=== PATIENT | female | born 1940 | race Caucasian/White ===

== ENCOUNTER 2018-07-31 00:10 | Emergency (ER) | payer MEDICARE, OTHER ==
[~2018-07-31] VITALS: Ht 149.9 cm; Wt 63.5 kg
[~2018-07-31 00:10] MED LIST: ALPR.25 PO; ASPI325 PO; CALCAVITDA PO; CALMAGZIN; CELE200 PO; CIPR500 PO; EFFIENT PO; ESOM20; ESTNOR; HYDACE5 PO; METO25; METO25ER PO; MULVITA; MULVITMIND PO; OMEP20ER PO; OMEPRAZOLE DR 20 MG; PYRI100 PO; ROFE25; SIMV40 PO; Simvastatin40 MG; [UNRECOGNIZED DRUG - REMARK]
[2018-07-31] MEDS ORDERED: Aspir 8181 MG PO (00:35)
[2018-07-31 00:51] LABS: BASOPHILS ABSOLUTE AUTO 0.03 K/mm3 (0.00-0.23); BASOPHILS PERCENT AUTO 0 % (0-2); EOSINOPHILS ABSOLUTE AUTO 0.01 K/mm3 (0.00-0.68); EOSINOPHILS PERCENT AUTO 0 % (0-6); Hematocrit 42.8 % (33.0-51.0); Hemoglobin 14.2 g/dL (11.5-16.0); IMMATURE GRAN ABSOLUTE AUTO 0.03 K/mm3 (0.00-0.10); IMMATURE GRAN PERCENT AUTO 0 % (0-1); LYMPHOCYTES ABSOLUTE AUTO 0.87 K/mm3 (0.84-5.20); LYMPHOCYTES PERCENT AUTO 7 % (21-46); MONOCYTES PERCENT AUTO 3 % (4-13); Mean Corpuscular HGB 28.9 pg (26.0-34.0); Mean Corpuscular HGB Conc 33.2 g/dL (31.5-36.5); Mean Corpuscular Volume 87 fL (80-100); Mean Platelet Volume 11.3 fL (9.1-12.4); NEUTROPHILS ABSOLUTE AUTO 12.14 K/mm3 (1.96-9.15); NEUTROPHILS PERCENT AUTO 90 % (41-73); Platelet Count 322 K/mm3 (150-400); RDW Coefficient Variation 14.3 % (11.7-14.2); RDW Standard Deviation 45.9 fL (35.1-46.3); Red Blood Cell Count 4.92 M/mm3 (3.80-5.20); White Blood Cell Count 13.48 K/mm3 (4.00-11.30)
[2018-07-31 01:13] LABS: Alanine Aminotransfer (ALT/SGP 19 U/L (12-78); Albumin, Blood 3.6 g/dL (3.4-5.0); Albumin/Globulin Ratio 0.8 (0.8-1.8); Alk Phos 73 U/L (50-136); Anion Gap 13 mmol/L (6-16); Aspartate Aminotrans (AST/SGOT 20 U/L (12-37); Bilirubin, Total 0.7 mg/dL (0.1-1.0); Blood Urea Nitrogen 21 mg/dL (8-24); Bun/Creatinine Ratio 26.6 (12.0-20.0); CO2, Blood 23 mmol/L (21-32); Calcium, Blood 9.3 mg/dL (8.5-10.1); Chloride, Blood 103 mmol/L (98-108); Creatinine, Blood 0.79 mg/dL (0.40-1.00); Globulin, Blood 4.3 g/dL (2.2-4.0); Glomerular Filtration Rate >60 (60-); Glucose, Blood 188 mg/dL (70-99); Potassium, Blood 3.9 mmol/L (3.5-5.5); Sodium, Blood 139 mmol/L (136-145); Total Protein, Blood 7.9 g/dL (6.4-8.2); Troponin I <0.015 ng/mL (0.000-0.040)
[2018-07-31 01:40] LABS: Source, Urine Clean Catch
[2018-07-31 01:41] LABS: Bilirubin, Urine Neg (Neg); Blood, Urine Neg (Neg); Glucose Qualitative, Urine 1+ (Neg); Ketones, Urine 2+ (Neg); Leukocyte Esterase, Urine 1+ (Neg); Nitrite, Urine Neg (Neg); Protein, Urine 2+ (Neg); Urobilinogen, Urine NORM (Normal)
[2018-07-31 01:46] LABS: Appearance, Urine Clear (Clear); Color, Urine Yellow (P-Yellow)
[2018-07-31 01:47] LABS: Bacteria Rare /hpf; Red Blood Cells, Urine Not Seen /hpf (0-2); Squamous Epithelial Cells Not Seen /hpf (Few)
== END 2018-07-31 04:58 | disposition home or self-care (01) ==
LOC: ER 00:10
PROVIDERS: Emergency Medicine
DX: K44.9 Diaphragmatic hernia without obstruction or gangrene (principal); K21.9 Gastro-esophageal reflux disease without esophagitis; Z91.048 Other nonmedicinal substance allergy status; Z88.6 Allergy status to analgesic agent; Z79.899 Other long term (current) drug therapy; I25.2 Old myocardial infarction
CPT/HCPCS: 80053; 81001; 83690; 84484; 85025; 87086; 93005; 93010; 96374; 99284-25; J2405

== ENCOUNTER 2018-09-03 11:46 | Day surgery (SDC) | payer MEDICARE, OTHER ==
[~2018-09-03] VITALS: Ht 149.9 cm; Wt 55.9 kg
[~2018-09-03 11:46] MED LIST changes: +Aspir 8181 MG PO
--- NOTE | 2018-09-03 13:28 | NUR ---
09/03/18 1328 Leilani Gallagher PT AWARE OF CHANGE IN ANESTHESIA PLAN PER DR. GRAHAM AND DR. MCKOY. PT CONTENT IN PREOP WITH CALL LIGHT WITHIN REACH.
== END 2018-09-03 15:20 | disposition home or self-care (01) ==
LOC: ORSCSDS 11:46
PROVIDERS: Surgery
PROC: 0DB48ZX Excision of Esophagogastric Junction, Via Natural or Artificial Opening Endoscopic, Diagnostic (ICD-10-PCS; principal; 2018-09-03 13:00)
DX: K44.9 Diaphragmatic hernia without obstruction or gangrene (principal); K21.9 Gastro-esophageal reflux disease without esophagitis; I25.2 Old myocardial infarction; I10 Essential (primary) hypertension; I25.10 Atherosclerotic heart disease of native coronary artery without angina pectoris; Z79.82 Long term (current) use of aspirin; Z79.899 Other long term (current) drug therapy
CPT/HCPCS: 88305; J1100; J2250; J2704; J2710; J7120

== ENCOUNTER 2018-10-08 06:04 | Inpatient (IN) | payer MEDICARE, OTHER ==
[~2018-10-08] VITALS: Ht 149.9 cm; Wt 55.5 kg
[~2018-10-08 06:04] MED LIST changes: +ATOR40TA PO; +CHOL10002 PO; +Coq-1030 MG PO; +Hair, Skin & N1 EACH PO; +Metoprolol Succ25 MG PO; -OMEPRAZOLE DR 20 MG; +OMEPRAZOLE PO; +SENN187 PO; -Simvastatin40 MG; +Simvastatin40 MG PO; +[UNRECOGNIZED DRUG - OTHER] PO
--- NOTE | 2018-10-08 06:41 | NUR ---
PT ADMITTED TO [facility]. AGREES WITH PLANNED SURGERY. PT STATES SHE IS VERY ANXIOUS AND APPEARS TO BE. LUNG SOUNDS CLEAR.
--- NOTE | 2018-10-08 06:43 | NUR ---
PT STATES SHE DRANK A 10 OZ ENSURE AT 0430 THAT WAS GIVEN TO HER BY DR. MCKOY, STATES IS WAS A VERY THINK DRINK.
--- NOTE | 2018-10-08 17:38 | NUR ---
SUMMARY PT ARRIVED TO UNIT FROM PACU THIS AFTERNOON. A&OX4. ANXIOUS. LAP INCISIONS X5 W/WOUND GLUE TO ABDOMEN CDI. NG TO L NARES TO LIS. SCANT BLOOD TINGED DRAINAGE. MEDICATED PT PER ORDERS FOR PAIN AND NAUSEA. PT HAS BEEN UP TO VOID. DAUGHTER AT BEDSIDE. CALL LIGHT IN REACH. BED ALARM ON.
--- NOTE | 2018-10-08 19:17 | NUR ---
REPORT GIVEN TO ONCOMING SHIFT.
--- NOTE | 2018-10-09 07:47 | NUR ---
SUMMARY PT ANXIOUS AND REQUIRES FREQUENT REASSURANCE AND REINSTRUCT ON POSTOP CARE. NG BEGINNING TO HAVE GREEN TINGE.PT RECEIVING MORPHINE FOR PAIN.
--- NOTE | 2018-10-09 15:22 | NUR ---
NG TUBE DR MCKOY BY TO CLAMP NG TUBE THIS AM. REASSESSED FOR NAUSEA, BLOATING. NO NEW ORDERS. PT NG TO REMAIN CLAMPED UNLESS C/O N/V, BLOATING.
--- NOTE | 2018-10-09 18:34 | NUR ---
SHIFT SUMMARY PT NG TUBE CLAMPED. DR MCKOY WANTS IT TO REMAIN CLAMPED THROUGHOUT NIGHT UNLESS C/O N/V OR BLOATING. IN CHAIR FOR MEALS AND 1 PERSON ASSIST TO BSC WITH FWW. PT EXPRESSED INCREASE PAIN WITH AMBULATION AND OOB. CONFUSED AT TIMES THROUGHOUT SHIFT BUT EASY TO REDIRECT. CALL LIGHT WITHIN REACH.
--- NOTE | 2018-10-10 06:36 | NUR ---
shift summary PT A&O T/O SHIFT; OCC SHORT-TERM FORGETFUL. POD#2 PARAESOPHAGEAL HERNIA REPAIR; LAP SITES CDI. ABD SOFT, FEW BT. NG TUBE RECONNECTED D/T PT DISCOMFORT AND SLIGHT INCREASE IN DISTENTION APPROX. MIDNIGHT 650 ML OUT. PAIN MANAGED PER EMAR. SCD'S TO BLE'S. RA; CONT. OXIMETRY IN PLACE. TELEMETRY IN PLACE; SR WITH PAC'S. UP WITH FWW AND SBA. CALL LIGHT IN REACH; PT UP IN RECLINER AT THIS TIME.
--- NOTE | 2018-10-10 16:27 | NUR ---
SHIFT SUMMARY PT IS ALERT AND ORIENTED WITH SOME INTERMITTENT CONFUSION. VSS, PT ON RA. NG TUBE CLAMPED. PT PASSED GAS X1 AND BOWEL SOUNDS PRESENT, NO BM, PT IS ABLE TO TOLERATE SMALL SIPS OF WATER AND JUICE. PT IS AMBULATING WELL IN HALLWAYS WITH FWW AND GB WITH MINIMAL ASSIST. PT HAS HAD NO COMPLAINTS OF PAIN DURING SHIFT, PT JUMPS WHEN ABDOMEN IS PALPATED, PT STATES SHE IS "TICKLISH". LAP SITES DRY AND OPEN TO AIR, SLIGHT BRUISING AROUND. PATIENT HAS BEEN CALLING APPROPRIATLY. PLAN IS TO DC NG TUBE IN THE MORNING IF PATIENT IS PASSING GAS AND IS NOT BECOMING DISTENDED.
--- NOTE | 2018-10-11 04:57 | NUR ---
SUMMARY: PT IS POD3 HERNIA REPAIR, NO ACUTE CHANGE TONIGHT. ABLE TO TOLERATE SMALL SIPS OF WATER AND DID NOT REPORT NAUSEA. PT HAD A COUGHING FIT AFTER DRINKING SOME WATER, AND NG PUT TO LIS FOR ABOUT 20 MIN AND 200ML DRAINED AROUND 2019. NGT CLAMPED AGAIN AFTER 20 MIN AND HAS BEEN THE REMAINDER OF SHIFT. PT HAS DENIED ANY NAUSEA TONIGHT, REPORTED PASSING GAS THIS AM. SURGICIAL SITES WNL. PT ANXIOUS AND TEARFUL TONIGHT BEFORE SLEEP. ENCOURAGED TO RELAX. VSS, A/O, FORGETFUL AT TIMES. BED ALARM FOR SAFETY
--- NOTE | 2018-10-11 16:19 | NUR ---
SHIFT SUMMARY POD3 HERNIA REPAIR. AAOX4 WITH SOME INTERMITTENT CONFUSION. VSS. PT PASSING GAS, NO BM. NG TUBE DC'D. PT TOLERATING FULL LIQUID DIET, PO MEDS. AMBULATING WITH MINIMAL ASSIST. NO C/O OF PAIN, NO NAUSEA/VOMITING. PLAN IS FOR DC TOMORROW.
--- NOTE | 2018-10-12 04:30 | NUR ---
SUMMARY: PT IS POD 4 PARAESOPHAGEAL HERNIA REPAIR. NO ACUTE CHANGE TONIGHT. HAS DENIED N/V, IS PASSING GAS AND TOLERATING DIET. AMBULATING WELL VSS. HOME DOSE OF PO METROPRLOL RESTARTED. NO BM TONIGHT, PT HAS DENIED PAIN. SURGICAL SITES WNL. PLAN IS DC TODAY. NO SAFETY CONCERNS AT THIS TIME.
[2018-10-12] MEDS ORDERED: Metoprolol Succ25 MG PO (11:56)
[2018-10-12] MEDS ORDERED: OMEPRAZOLE20 MG PO (11:57)
[2018-10-12] MEDS ORDERED: ACET325 PO (11:58)
--- NOTE | 2018-10-12 14:20 | NUR ---
PT LEFT SURGICAL FLOOR TO DISCHARGE HOME AT APPROXIMATELY 1420.
--- NOTE | 2018-10-12 14:24 | NUR ---
DISCHARGE PT PROVIDED WITH WRITTEN AND VERBAL DISCHARGE INSTRUCTIONS. PT AND HER DAUGHTER REPORTED UNDERSTANDING INSTRUCTIONS. PT WAS OFFERED ASSISTANCE OUT IN W/C, PT DECLINED ASSISTANCE AND DISCHARGED AT APPROXIMATELY 1420.
== END 2018-10-12 14:27 | disposition home or self-care (01) | DRG 328 ==
LOC: ORSCMMR 06:04 → ORD 07:30 → ORSCMMR 07:30 → SURS 12:50 → ORSCMMR 12:50 → SURS 14:49
PROVIDERS: ADMIT Surgery
PROC: 0BUT0JZ Supplement Diaphragm with Synthetic Substitute, Open Approach (ICD-10-PCS; principal; 2018-10-08 07:30)
DX: K44.9 Diaphragmatic hernia without obstruction or gangrene (principal); K31.89 Other diseases of stomach and duodenum; I25.10 Atherosclerotic heart disease of native coronary artery without angina pectoris; I10 Essential (primary) hypertension; K21.9 Gastro-esophageal reflux disease without esophagitis; Z95.5 Presence of coronary angioplasty implant and graft
CPT/HCPCS: 82947; 86850; 86900; 86901; 88302; 94762; 96361; 96372; 96374; 96375; 96376; 97110; 97116; 97162; 97530; C1729; C1781; C9113; G0378; J0330; J0690; J1100; J1650; J2250; J2270; J2370; J2405; J2704; J2765; J3010; J7030; J7120

== ENCOUNTER 2018-11-13 17:15 | Inpatient (IN) | payer MEDICARE, OTHER ==
[~2018-11-13] VITALS: Ht 149.9 cm; Wt 53.2 kg
[~2018-11-13 17:15] MED LIST changes: +ACET325 PO; +OMEPRAZOLE20 MG PO
[2018-11-13 17:51] LABS: BASOPHILS ABSOLUTE AUTO 0.06 K/mm3 (0.00-0.23); BASOPHILS PERCENT AUTO 1 % (0-2); EOSINOPHILS ABSOLUTE AUTO 0.14 K/mm3 (0.00-0.68); EOSINOPHILS PERCENT AUTO 2 % (0-6); Hematocrit 42.2 % (33.0-51.0); Hemoglobin 14.2 g/dL (11.5-16.0); IMMATURE GRAN ABSOLUTE AUTO 0.02 K/mm3 (0.00-0.10); IMMATURE GRAN PERCENT AUTO 0 % (0-1); LYMPHOCYTES ABSOLUTE AUTO 1.25 K/mm3 (0.84-5.20); LYMPHOCYTES PERCENT AUTO 14 % (21-46); MONOCYTES ABSOLUTE AUTO 0.68 K/mm3 (0.16-1.47); MONOCYTES PERCENT AUTO 8 % (4-13); Mean Corpuscular HGB 29.5 pg (26.0-34.0); Mean Corpuscular HGB Conc 33.6 g/dL (31.5-36.5); Mean Corpuscular Volume 88 fL (80-100); NEUTROPHILS ABSOLUTE AUTO 6.71 K/mm3 (1.96-9.15); NEUTROPHILS PERCENT AUTO 76 % (41-73); Platelet Count 318 K/mm3 (150-400); RDW Coefficient Variation 14.6 % (11.7-14.2); RDW Standard Deviation 46.9 fL (35.1-46.3); Red Blood Cell Count 4.82 M/mm3 (3.80-5.20); White Blood Cell Count 8.86 K/mm3 (4.00-11.30)
[2018-11-13 17:57] LABS: Source, Urine Clean Catch
[2018-11-13 18:01] LABS: Bilirubin, Urine Neg (Neg); Blood, Urine Neg (Neg); Glucose Qualitative, Urine Neg (Neg); Ketones, Urine 1+ (Neg); Leukocyte Esterase, Urine 1+ (Neg); Nitrite, Urine Neg (Neg); Protein, Urine 2+ (Neg); Specific Gravity, Urine 1.015 (1.003-1.022); Urobilinogen, Urine NORM (Normal)
[2018-11-13 18:11] LABS: Appearance, Urine Clear (Clear); Color, Urine Yellow (P-Yellow)
[2018-11-13 18:13] LABS: Bacteria Few /hpf; Mucus Mod (0-Heavy); Red Blood Cells, Urine 0-2 /hpf (0-2); Squamous Epithelial Cells Few /hpf (Few); Transitional Epithelial Cells Few /hpf (0-Rare)
[2018-11-13 18:16] LABS: Alanine Aminotransfer (ALT/SGP 28 U/L (12-78); Albumin, Blood 3.8 g/dL (3.4-5.0); Alk Phos 81 U/L (50-136); Anion Gap 9 mmol/L (6-16); Aspartate Aminotrans (AST/SGOT 28 U/L (12-37); Blood Urea Nitrogen 16 mg/dL (8-24); CO2, Blood 28 mmol/L (21-32); Calcium, Blood 9.7 mg/dL (8.5-10.1); Chloride, Blood 100 mmol/L (98-108); Globulin, Blood 3.8 g/dL (2.2-4.0); Glomerular Filtration Rate >60 (60-); Glucose, Blood 158 mg/dL (70-99); Potassium, Blood 3.9 mmol/L (3.5-5.5); Sodium, Blood 137 mmol/L (136-145); Total Protein, Blood 7.6 g/dL (6.4-8.2)
[2018-11-13] MEDS ORDERED: METO10 PO (20:30)
[2018-11-13] MEDS ORDERED: Preservision A1 EACH PO (20:33)
[2018-11-13] MEDS ORDERED: Vitamin D2000 UNIT PO (20:34)
[2018-11-13] MEDS ORDERED: GAVILAX17 GM PO (20:46)
[2018-11-13] MEDS ORDERED: CO Q10100 MG PO (20:47)
[2018-11-14 05:02] LABS: BASOPHILS ABSOLUTE AUTO 0.03 K/mm3 (0.00-0.23); BASOPHILS PERCENT AUTO 0 % (0-2); EOSINOPHILS ABSOLUTE AUTO 0.21 K/mm3 (0.00-0.68); EOSINOPHILS PERCENT AUTO 2 % (0-6); Hematocrit 39.2 % (33.0-51.0); Hemoglobin 12.7 g/dL (11.5-16.0); IMMATURE GRAN ABSOLUTE AUTO 0.04 K/mm3 (0.00-0.10); IMMATURE GRAN PERCENT AUTO 0 % (0-1); LYMPHOCYTES ABSOLUTE AUTO 1.18 K/mm3 (0.84-5.20); LYMPHOCYTES PERCENT AUTO 10 % (21-46); MONOCYTES ABSOLUTE AUTO 1.38 K/mm3 (0.16-1.47); MONOCYTES PERCENT AUTO 11 % (4-13); Mean Corpuscular HGB 29.2 pg (26.0-34.0); Mean Corpuscular HGB Conc 32.4 g/dL (31.5-36.5); Mean Corpuscular Volume 90 fL (80-100); NEUTROPHILS ABSOLUTE AUTO 9.32 K/mm3 (1.96-9.15); NEUTROPHILS PERCENT AUTO 77 % (41-73); Platelet Count 271 K/mm3 (150-400); RDW Coefficient Variation 14.7 % (11.7-14.2); RDW Standard Deviation 48.7 fL (35.1-46.3); Red Blood Cell Count 4.35 M/mm3 (3.80-5.20); White Blood Cell Count 12.16 K/mm3 (4.00-11.30)
[2018-11-14 05:33] LABS: Anion Gap 7 mmol/L (6-16); Blood Urea Nitrogen 14 mg/dL (8-24); Bun/Creatinine Ratio 20.6 (12.0-20.0); CO2, Blood 26 mmol/L (21-32); Calcium, Blood 8.4 mg/dL (8.5-10.1); Chloride, Blood 106 mmol/L (98-108); Creatinine, Blood 0.68 mg/dL (0.40-1.00); Glomerular Filtration Rate >60 (60-); Glucose, Blood 101 mg/dL (70-99); Potassium, Blood 3.7 mmol/L (3.5-5.5); Sodium, Blood 139 mmol/L (136-145)
--- NOTE | 2018-11-14 11:15 | NUR ---
DR MONTGOMERY AT BEDSIDE TO SEE PT. PER DR MONTGOMERY PT MAY ADVANCE TO CLEAR LIQUIDS TODAY AND ADVANCE AGAIN TOMORROW. IF TOLERATING DIET TOMORROW POSSIBLE DISCHARGE HOME.
--- NOTE | 2018-11-14 18:14 | NUR ---
PT SAYS SHE IS FEELING BETTER, DR MONTGOMERY ADVANCED HER DIET TO CLEAR LIQUIDS TODAY, TO BE ADVANCED AGAIN TOMORROW. PT IS HOPING TO BE ABLE TO GO HOME TOMORROW. NO ACUTE CHANGES NOTED THIS SHIFT, WILL CONTINUE TO MONITOR AND REPORT TO ONCOMING RN
--- NOTE | 2018-11-15 07:09 | NUR ---
call light in reach, able to get to bathroom on own but provided assisance for safety related to hoses, infusing at 75, room air, roused each time in to check on medication or equipment, bsr given to returning day staff
[2018-11-15 08:52] LABS: BASOPHILS ABSOLUTE AUTO 0.03 K/mm3 (0.00-0.23); BASOPHILS PERCENT AUTO 1 % (0-2); EOSINOPHILS ABSOLUTE AUTO 0.42 K/mm3 (0.00-0.68); EOSINOPHILS PERCENT AUTO 7 % (0-6); Hematocrit 38.4 % (33.0-51.0); Hemoglobin 12.3 g/dL (11.5-16.0); IMMATURE GRAN ABSOLUTE AUTO 0.01 K/mm3 (0.00-0.10); IMMATURE GRAN PERCENT AUTO 0 % (0-1); LYMPHOCYTES ABSOLUTE AUTO 1.28 K/mm3 (0.84-5.20); LYMPHOCYTES PERCENT AUTO 23 % (21-46); MONOCYTES ABSOLUTE AUTO 0.51 K/mm3 (0.16-1.47); MONOCYTES PERCENT AUTO 9 % (4-13); Mean Corpuscular HGB 29.1 pg (26.0-34.0); Mean Corpuscular Volume 91 fL (80-100); Mean Platelet Volume 9.9 fL (9.1-12.4); NEUTROPHILS ABSOLUTE AUTO 3.43 K/mm3 (1.96-9.15); NEUTROPHILS PERCENT AUTO 60 % (41-73); Platelet Count 260 K/mm3 (150-400); RDW Coefficient Variation 15.2 % (11.7-14.2); RDW Standard Deviation 50.2 fL (35.1-46.3); Red Blood Cell Count 4.23 M/mm3 (3.80-5.20); White Blood Cell Count 5.68 K/mm3 (4.00-11.30)
[2018-11-15 09:03] LABS: Alanine Aminotransfer (ALT/SGP 16 U/L (12-78); Albumin, Blood 2.8 g/dL (3.4-5.0); Albumin/Globulin Ratio 0.9 (0.8-1.8); Alk Phos 60 U/L (50-136); Anion Gap 6 mmol/L (6-16); Aspartate Aminotrans (AST/SGOT 16 U/L (12-37); Blood Urea Nitrogen 6 mg/dL (8-24); Bun/Creatinine Ratio 9.1 (12.0-20.0); CO2, Blood 27 mmol/L (21-32); Chloride, Blood 109 mmol/L (98-108); Creatinine, Blood 0.66 mg/dL (0.40-1.00); Globulin, Blood 3.2 g/dL (2.2-4.0); Glomerular Filtration Rate >60 (60-); Glucose, Blood 102 mg/dL (70-99); Potassium, Blood 3.5 mmol/L (3.5-5.5); Sodium, Blood 142 mmol/L (136-145)
--- NOTE | 2018-11-15 14:12 | NUR ---
DISCHARGE DISCHARGE INSTRUCTIONS, FOLLOW UP APPOINTMENTS AND MEDICATION LIST REVIEWED WITH PT. QUESTIONS/CONCERNS ANSWERED. PT VERBALLY INDICATED UNDERSTANDING OF ALL INSTRUCTIONS RECEIVED. PT IS WAITING FOR HER RIDE AT THIS TIME.
--- NOTE | 2018-11-15 15:00 | NUR ---
DISCHARGE PT'S RIDE ARRIVED, ESCORTED OUT BY [facility]UN[facility]Y AID VIA W/C
[2018-11-26] MEDS ORDERED: Hair, Skin & N1 EACH PO (10:20)
== END 2018-11-15 14:58 | disposition home or self-care (01) | DRG 394 ==
LOC: ER 17:15 → MEDS 20:34
PROVIDERS: Emergency Medicine; Internal Medicine; ADMIT Internal Medicine
DX: K40.30 Unilateral inguinal hernia, with obstruction, without gangrene, not specified as recurrent (principal); K44.0 Diaphragmatic hernia with obstruction, without gangrene; I10 Essential (primary) hypertension; I25.10 Atherosclerotic heart disease of native coronary artery without angina pectoris; K21.9 Gastro-esophageal reflux disease without esophagitis; F41.9 Anxiety disorder, unspecified; M06.9 Rheumatoid arthritis, unspecified; E78.5 Hyperlipidemia, unspecified; Z95.5 Presence of coronary angioplasty implant and graft; Z79.82 Long term (current) use of aspirin; Z79.899 Other long term (current) drug therapy; I25.2 Old myocardial infarction
CPT/HCPCS: 36415; 74177; 80048; 80053; 81001; 82947; 83690; 85025; 87086; 93005; 93010; 96374-59; 99285-25; C9113; J1644; J2060; J2405; J7042; Q9967

== ENCOUNTER 2018-11-30 05:59 | Day surgery (SDC) | payer MEDICARE, OTHER ==
[~2018-11-30] VITALS: Ht 149.9 cm; Wt 52.3 kg
[~2018-11-30 05:59] MED LIST changes: +CO Q10100 MG PO; +GAVILAX17 GM PO; +METO10 PO; +Preservision A1 EACH PO; +Vitamin D2000 UNIT PO
--- NOTE | 2018-11-30 06:33 | NUR ---
PT ADMITTED TO [facility]. AGREES WITH PLANNED SURGERY. LUNGS SOUNS CLEAR.
--- NOTE | 2018-11-30 16:25 | NUR ---
SHIFT SUMMARY PT A&OX4, VSS, S/P ROBOTIC LAP HERNIA REPAIR W/3 GLUED SITES CDI. PAIN MANAGED PER EMAR. LUÍS PO, DENIES N&V. AMB SBA TO BSC. VOIDING WELL. WCTM & TX PER EMAR UNTIL REPORT GIVEN TO ONCOMING ERASTO RN.
[2018-12-01 04:51] LABS: BASOPHILS ABSOLUTE AUTO 0.04 K/mm3 (0.00-0.23); BASOPHILS PERCENT AUTO 0 % (0-2); EOSINOPHILS ABSOLUTE AUTO 0.03 K/mm3 (0.00-0.68); EOSINOPHILS PERCENT AUTO 0 % (0-6); Hematocrit 36.8 % (33.0-51.0); Hemoglobin 12.1 g/dL (11.5-16.0); IMMATURE GRAN ABSOLUTE AUTO 0.04 K/mm3 (0.00-0.10); IMMATURE GRAN PERCENT AUTO 0 % (0-1); LYMPHOCYTES ABSOLUTE AUTO 1.12 K/mm3 (0.84-5.20); LYMPHOCYTES PERCENT AUTO 10 % (21-46); MONOCYTES ABSOLUTE AUTO 1.28 K/mm3 (0.16-1.47); MONOCYTES PERCENT AUTO 11 % (4-13); Mean Corpuscular HGB 29.7 pg (26.0-34.0); Mean Corpuscular HGB Conc 32.9 g/dL (31.5-36.5); Mean Corpuscular Volume 90 fL (80-100); Mean Platelet Volume 9.9 fL (9.1-12.4); NEUTROPHILS ABSOLUTE AUTO 8.98 K/mm3 (1.96-9.15); NEUTROPHILS PERCENT AUTO 78 % (41-73); Platelet Count 282 K/mm3 (150-400); RDW Coefficient Variation 14.9 % (11.7-14.2); RDW Standard Deviation 49.7 fL (35.1-46.3); Red Blood Cell Count 4.07 M/mm3 (3.80-5.20); White Blood Cell Count 11.49 K/mm3 (4.00-11.30)
--- NOTE | 2018-12-01 04:54 | NUR ---
SHIFT SUMMARY PT A&O X4 T/O SHIFT. POD#1; LAP SITES CDI. ABD SOFT; BTX4; PT DENIES FLATUS. TX FOR NAUSEA X1 PER EMAR. PAIN MANAGED PER EMAR. UP TO BSC WITH MIN ASSIT TO MANAGE SCD'S. VSS; NO ACUTE CHANGES. SCD'S TO BLE'S. CALL LIGHT IN REACH; PT DEMONSTRATES USE. WCTM UNTIL REPORT TO DAY SHIFT RN.
[2018-12-01] MEDS ORDERED: ACET325 PO (09:27)
[2018-12-01] MEDS ORDERED: Norco 5-325 Ta1 EACH PO (09:28)
--- NOTE | 2018-12-01 12:16 | NUR ---
SHIFT SUMMARY PT A&OX4, VSS, LEFT FLOOR WITH DAUGHTER TERENCE, AND ALL PERSONAL POSSESSIONS INCLUDING DISCHARGE PACKET WITH 1 NARC SCRIPT, TO GO HOME. DISCHARGE INSTRUCTIONS PROVIDED TO PT AND DAUGHTER TERENCE. THEY REPORTED UNDERSTANDING THOSE INSTRUCTIONS INCLUDING FU WITH SURGEON 2 WKS. IV DC'D.
== END 2018-12-01 12:01 | disposition home or self-care (01) ==
LOC: ORSCMMR 05:59 → ORD 07:30 → ORSCMMR 07:30 → SURS 12:15 → ORSCMMR 12:15 → SURS 12-01 12:01 → ORSCMMR 12-01 12:01
PROVIDERS: Surgery
PROC: 8E0W4CZ Robotic Assisted Procedure of Trunk Region, Percutaneous Endoscopic Approach (ICD-10-PCS; principal; 2018-11-30 07:30)
PROC: 0YU74JZ Supplement Right Femoral Region with Synthetic Substitute, Percutaneous Endoscopic Approach (ICD-10-PCS; principal; 2018-11-30 07:30)
DX: K41.30 Unilateral femoral hernia, with obstruction, without gangrene, not specified as recurrent (principal); I10 Essential (primary) hypertension; I25.2 Old myocardial infarction; I25.10 Atherosclerotic heart disease of native coronary artery without angina pectoris; K21.9 Gastro-esophageal reflux disease without esophagitis; Z79.82 Long term (current) use of aspirin
CPT/HCPCS: 49659; S2900; 36415; 85025; 86850; 86900; 86901; 88302; A9270; A9270-GY; C1729; C1781; J0690; J1100; J2370; J2405; J2704; J2710; J3010; J7120

== ENCOUNTER 2019-07-22 06:20 | Day surgery (SDC) | payer MEDICARE, OTHER ==
[~2019-07-22] VITALS: Ht 149.9 cm; Wt 54.3 kg
[~2019-07-22 06:20] MED LIST changes: +Aspir 8181 MG; +Norco 5-325 Ta1 EACH PO
== END 2019-07-22 08:52 | disposition home or self-care (01) ==
LOC: ORSCSDS 06:20
PROVIDERS: Orthopaedic Surgery
PROC: 01N50ZZ Release Median Nerve, Open Approach (ICD-10-PCS; principal; 2019-07-22 07:30)
DX: G56.01 Carpal tunnel syndrome, right upper limb (principal); I10 Essential (primary) hypertension; I25.2 Old myocardial infarction; F41.9 Anxiety disorder, unspecified; K21.9 Gastro-esophageal reflux disease without esophagitis; I25.10 Atherosclerotic heart disease of native coronary artery without angina pectoris; Z79.82 Long term (current) use of aspirin; Z79.899 Other long term (current) drug therapy
CPT/HCPCS: J0690; J2250; J2704; J3010; J7120

== ENCOUNTER 2020-07-19 06:55 | Day surgery (SDC) | payer MEDICARE, OTHER ==
[~2020-07-19] VITALS: Ht 152.4 cm; Wt 51.9 kg
[~2020-07-19 06:55] MED LIST changes: -Aspir 8181 MG
[2020-07-19] MEDS ORDERED: Prozac20 MG (07:42)
--- NOTE | 2020-07-19 07:45 | NUR ---
07/19/20 0745 Marilou Gilliland 0739 TERTRACAINE DROP INSTILLED IN RIGHT EYE BY [email or web address] 0744 PLEDGET INSERTED IN RIGHT EYE BY [email or web address].
== END 2020-07-19 09:15 | disposition home or self-care (01) ==
LOC: ORSCSDS 06:55
PROVIDERS: Ophthalmology
PROC: 08RJ3JZ Replacement of Right Lens with Synthetic Substitute, Percutaneous Approach (ICD-10-PCS; principal; 2020-07-19 08:30)
DX: H25.11 Age-related nuclear cataract, right eye (principal); I10 Essential (primary) hypertension; I25.2 Old myocardial infarction; Z79.899 Other long term (current) drug therapy
CPT/HCPCS: A9270; J2001; J2250; J3010; J3301; J7040; V2632

== ENCOUNTER 2020-10-11 06:18 | Day surgery (SDC) | payer MEDICARE, OTHER ==
[~2020-10-11] VITALS: Ht 152.4 cm; Wt 53.8 kg
--- NOTE | 2020-10-11 06:13 | NUR ---
10/11/20 0613 Michaelle Johnson, MATTEO CHARTING PREOP
[~2020-10-11 06:18] MED LIST changes: +Prozac20 MG
== END 2020-10-11 08:19 | disposition home or self-care (01) ==
LOC: ORSCSDS 06:18
PROVIDERS: Ophthalmology
PROC: 08RK3JZ Replacement of Left Lens with Synthetic Substitute, Percutaneous Approach (ICD-10-PCS; principal; 2020-10-11 07:30)
DX: H25.12 Age-related nuclear cataract, left eye (principal); I10 Essential (primary) hypertension; I25.2 Old myocardial infarction; Z79.899 Other long term (current) drug therapy; Z79.82 Long term (current) use of aspirin
CPT/HCPCS: J2001; J2250; J3010; J3301; J7040; V2632

== ENCOUNTER → 2021-03-28 | Outpatient (CLI) | payer MEDICARE, OTHER ==
[2021-03-28 14:02] LABS: CHOL/HDL RATIO 2.5; Cholesterol 227 mg/dL (50-200); HDL Cholesterol 90 mg/dL (>39); LDL/HDL RATIO 1.4; Low Density Lipoprotein Chol 124 mg/dL (0-110); Triglycerides 66 mg/dL (30-160); Very Low Density Lipoprot Chol 13 mg/dL (6-32)
== END | disposition home or self-care (01) ==
LOC: LAB SHORT 10:46 → LAB 10:46
PROVIDERS: Internal Medicine Cardiovascular Disease
DX: I25.10 Atherosclerotic heart disease of native coronary artery without angina pectoris (principal); I25.9 Chronic ischemic heart disease, unspecified
CPT/HCPCS: 36415; 80061